=== PATIENT | female | born 1950 | race Two or more races ===

== ENCOUNTER 2023-06-23 17:51 | Emergency (ER) | payer OTHER ==
[~2023-06-23] VITALS: Ht 165.1 cm; Wt 78.0 kg
[2023-06-23 21:36] VITALS: BP 113/53; PULSE 63; RESP 17; TEMP 98.1; O2SAT 97
[2023-06-23] MEDS: HYDROcodone-ACET 10/325MG TAB PO ONE (21:41)
[2023-06-23] MEDS ORDERED: HYDR-4902 PO (21:42)
[2023-06-23] MEDS ORDERED: IBUP-1455 PO (21:42)
== END 2023-06-23 22:17 | disposition home or self-care (01) ==
LOC: ER 17:51
DX: S82.831A Other fracture of upper and lower end of right fibula, initial encounter for closed fracture (principal); S82.301A Unspecified fracture of lower end of right tibia, initial encounter for closed fracture; V19.9XXA Pedal cyclist (driver) (passenger) injured in unspecified traffic accident, initial encounter; Y93.89 Activity, other specified; Y92.89 Other specified places as the place of occurrence of the external cause; Y99.8 Other external cause status
CPT/HCPCS: 29515; 73610